=== PATIENT | female | born 1965 | race Caucasian/White ===

== ENCOUNTER 2019-12-03 07:39 | Outpatient (CLI) | payer BC ==
--- NOTE | 2019-12-03 09:15 | MRI ---
MRI Lower Ext Jt Rt WO Con HISTORY: Knee pain x3-4 months. COMPARISON: None. FINDINGS: The anterior as well as posterior cruciate ligaments are intact. Scan detail is limited due to body habitus. The lateral meniscus is normal in shape and appearance. There is a root tear of the posterior horn of the medial meniscus with some mild meniscal subluxation . The medial and lateral collateral ligaments and iliotibial band regions appear unremarkable. Patellar articular cartilage shows some articular cartilage thinning at the apex of the patella fills minimally laterally subluxed. The medial lateral patellar retinaculum and quadriceps and patellar tendons are normal. There is somewhat unusual appearance of some increased T2 signal change along the lateral side tibia changes are at the level of the fused epiphyseal plate but then extends to the anterior edge of the tibia directly beneath the subchondral bony plate is a somewhat unusual in appearance for an insuffic iency fracture but is felt to represent some type of stress type reaction. IMPRESSION: 1. Root tear of the posterior horn of the medial meniscus. 2. Marrow edema changes along the anterior margin of the lateral side of the tibia as described above probably related to insufficiency-type fracture.
== END 2019-12-03 07:40 | disposition home or self-care (01) ==
LOC: SCSMRI 07:39
PROVIDERS: ATTEND Orthopaedic Surgery
DX: M23.221 Derangement of posterior horn of medial meniscus due to old tear or injury, right knee (principal); R93.7 Abnormal findings on diagnostic imaging of other parts of musculoskeletal system

== ENCOUNTER 2020-04-27 12:57 | Emergency (ER) | payer BC, OTHER ==
[2020-04-28 12:15] LABS: SARS-CoV-2 MS2 Positive; SARS-CoV-2 N Gene Negative; SARS-CoV-2 S Gene Negative; SARS-CoV-2 orf1ab Negative
== END 2020-04-27 13:40 | disposition home or self-care (01) ==
LOC: ERS 12:57
DX: Z20.828 Contact with and (suspected) exposure to other viral communicable diseases (principal); I10 Essential (primary) hypertension; E66.9 Obesity, unspecified
CPT/HCPCS: 87635; 99283; U0003